=== PATIENT | female | born 1985 | race Caucasian/White ===

== ENCOUNTER 2016-07-08 10:37 | Emergency (ER) | payer OTHER, BC ==
[~2016-07-08] VITALS: Ht 152.4 cm; Wt 70.0 kg
[2016-07-08 10:39] VITALS: BP 120/60; PULSE 106; TEMP 98.4; O2SAT 99
[2016-07-08] MEDS ORDERED: CARI1CAP PO (10:50)
[2016-07-08] MEDS ORDERED: TRAZ150T75 PO (10:50)
[2016-07-08] MEDS ORDERED: ALPR.5 PO (10:50)
[2016-07-08] MEDS ORDERED: SODIUM CHLOR 0.9% 1000 ML INJ 1,000 ML IV ONE (11:15)
[2016-07-08] MEDS ORDERED: MORPHINE SULFATE 4 MG/ML INJ IV PUSH ONE (11:15)
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
[2016-07-08 11:32] VITALS: BP 118/63; PULSE 82; RESP 16; O2SAT 100
[2016-07-08 11:56] LABS: AUTOMATED NEUTROPHIL # 11.6 TH/MM3 (1.8-7.7); BASOPHIL # 0.1 TH/MM3 (0-0.2); BASOPHIL % 0.4 % (0.0-2.0); EOSINOPHIL # 0.3 TH/MM3 (0-0.4); HEMATOCRIT 36.8 % (35.0-46.0); HEMO FLAGS DIFF FINAL; LYMPH % 22.3 % (9.0-44.0); LYMPHOCYTE # 3.7 TH/MM3 (1.0-4.8); MEAN CELL VOLUME 82.4 FL (80.0-100.0); MEAN CORPUSCULAR HEMOGLOBIN 28.4 PG (27.0-34.0); MEAN CORPUSCULAR HGB CONC 34.5 % (32.0-36.0); MONO % 5.4 % (0.0-8.0); NEUT % 69.9 % (16.0-70.0); PLATELET COUNT 275 TH/MM3 (150-450); RED BLOOD COUNT 4.46 MIL/MM3 (4.00-5.30); RED CELL DISTRIBUTION WIDTH 13.3 % (11.6-17.2); WHITE BLOOD COUNT 16.6 TH/MM3 (4.0-11.0)
[2016-07-08 12:13] LABS: ALT (GPT) 29 U/L (10-53); ANION GAP 9 MEQ/L (5-15); AST (GOT) 18 U/L (15-37); BICARBONATE 25.6 MEQ/L (21.0-32.0); BLOOD UREA NITROGEN 10 MG/DL (7-18); CHLORIDE 105 MEQ/L (98-107); GLOMERULAR FILTRATION RATE 81 ML/MIN (>89); POTASSIUM 4.3 MEQ/L (3.5-5.1); SODIUM (NA) 140 MEQ/L (136-145)
[2016-07-08 12:15] LABS: ALKALINE PHOSPHATASE 54 U/L (45-117); TOTAL BILIRUBIN ADULT 0.2 MG/DL (0.2-1.0)
[2016-07-08 13:35] VITALS: RESP 16
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
[2016-07-08] MEDS ORDERED: IOHEXOL 350 MG/ML 10 ML VIAL (for RAD DIAG) IV ONE (13:40)
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
== END 2016-07-08 14:22 | disposition home or self-care (01) ==
LOC: NEPA 10:37
DX: R51 Headache (principal); R10.819 Abdominal tenderness, unspecified site; S30.1XXA Contusion of abdominal wall, initial encounter; R07.9 Chest pain, unspecified; V43.52XA Car driver injured in collision with other type car in traffic accident, initial encounter; Y93.89 Activity, other specified; Y92.410 Unspecified street and highway as the place of occurrence of the external cause; Y99.9 Unspecified external cause status
CPT/HCPCS: 70450; 71020; 74177; 80053; 84703; 85025; 96361; 96374; 99284; J2270; J7030; Q9967

== ENCOUNTER 2016-07-16 09:22 | Emergency (ER) | payer OTHER, BC ==
[~2016-07-16] VITALS: Ht 152.4 cm; Wt 72.5 kg
[~2016-07-16 09:22] MED LIST: ALPR.5 PO; CARI1CAP PO; TRAZ150T75 PO
[2016-07-16 09:31] VITALS: BP 102/62; PULSE 74; RESP 20; TEMP 98.1; O2SAT 98
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
[2016-07-16] MEDS ORDERED: LURA20TA PO (10:13)
[2016-07-16] MEDS ORDERED: CLON1TAB PO (10:15)
[2016-07-16] MEDS ORDERED: METF500T PO (10:15)
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
== END 2016-07-16 12:26 | disposition home or self-care (01) ==
LOC: NEPE 09:22
DX: F07.81 Postconcussional syndrome (principal); S30.0XXD Contusion of lower back and pelvis, subsequent encounter; V49.49XD Driver injured in collision with other motor vehicles in traffic accident, subsequent encounter; Y92.410 Unspecified street and highway as the place of occurrence of the external cause; Z72.0 Tobacco use
CPT/HCPCS: 70450